=== PATIENT | female | born 2000 | race Caucasian/White ===

== ENCOUNTER 2023-12-24 14:38 | Outpatient (CLI) | payer BC, SELFPAY ==
--- NOTE | ~2023-12-24 | US_ITS ---
US breast RT limited 12/24/2023 15:55 Indication: Follow-up right breast mass Procedure: High-resolution Limited ultrasound of the right breast Comparison: Ultrasound dated 04/30/2023 Findings: At 10:00, 8 cm from the nipple there is an oval slightly lobulated parallel oriented hypoec hoic solid mass without significant posterior features or internal vascularity. This mass measures 3 x 2.9 x 0.7 cm compared with 3.1 x 3 x .8 cm on prior study. No significant change to morphology of t his mass allowing for differences of technique. Impression: 1: Stable benign-appearing right breast mass located at 10:00, 8 cm from the nipple. BI-RADS CATEGORY 3-PROBABLY BENIGN FINDING RECOMMENDATION: 12 month follow-up Limited right breast ultrasound recommended. Reviewed, dictated and finalized at location A. S AND MARKETING MANAGER Impression: 1: Stable benign-appearing right breast mass located at 10:00, 8 cm from the ni pple. BI-RADS CATEGORY 3-PROBABLY BENIGN FINDING RECOMMENDATION: 12 month follow-up Limited right breast ultrasound recommended.
== END 2023-12-24 14:39 | disposition home or self-care (01) ==
PROVIDERS: Visit Provider Obstetrics & Gynecology
DX: N63.11 Unspecified lump in the right breast, upper outer quadrant (principal)
CPT/HCPCS: 76642

== ENCOUNTER 2024-12-24 13:27 | Outpatient (CLI) | payer BC, SELFPAY ==
--- NOTE | ~2024-12-24 | US_ITS ---
US breast RT limited 12/24/2024 13:59 Indication: Follow-up right breast mass Procedure: High-resolution Limited ultrasound of the right breast Comparison: Comparison to multiple prior studies sequentially, with oldest reviewed study dated 04/2023. Findings: There is an oval slightly heterogeneous circumscribed parallel oriented mass of the right b reast at 10:00, 8 cm from the nipple measuring 3 x 2.9 x 0.7 cm. This mass measured 3.1 x 2.9 x 0.8 c m on 04/30/2023. There is minimal internal vascularity. No significant posterior features. Impression: 1: Stable right breast mass located at 10:00, 8 cm from the nipple, likely benign. BI-RADS CATEGORY 3-PROBABLY BENIGN FINDING RECOMMENDATION: 12 month interval follow-up Limited right breast ultrasound recommended. Reviewed, dictated and finalized at location A. NICAL ILLUSTRATOR Impression: 1: Stable right breast mass located at 10:00, 8 cm from the nipple, likely sarah gn. BI-RADS CATEGORY 3-PROBABLY BENIGN FINDING RECOMMENDATION: 12 month interval follow-up Limited right breast ultrasound rec ommended.
--- OUTSIDE RECORDS SUMMARY | 2024-12-24 14:10 | XMS_ITS | Encounter Summary ---
Author Organization [facility] Address [address] [place] [address]. [place], [place] [id number] [place] [address] Care Team Providers Care Melting Furnace Skimmer Name Role Phone Pedro Glass Primary Care Provider [phone] Encounter Details Date Type Department Care Team (Late st Contact Info) Description 12/18/2024 [employer] Group Message Enc [facility] [address] [place] [address] [facility] Order Social History Tobacco Use Types Packs/Day Years Used Date Smoking Tobacco: Never Smokeless Tobacco: Never Comments:non smoker Alcohol Use Standard Drinks/Week Comments Never 0 (1 standard drink = 0.6 oz pur e alcohol) PHQ-2 Answer Date Recorded Patient Health Questionnaire-2 Score 0 12/08/2024 Comments No Sex and Gender Information Value Date Recorded Sex Assigned at Female 12/08/2024 7:51 AM VENDING MACHINE COLLECTOR Legal Sex Female 8:07 PM CDT Gender Identity Not on file Sexual Orientation Not on file documented as of this encounter Plan of Treatment Not on file documented as of this encounter Visit Diagnoses Not on filedocumented in this encounter Additional Health Concerns Infection Onset Date Last Indicated Resolved Time MRSA 12/15/2018 12/15/2018 Assessment Noted Time PHQ-9 Depression Total Score: 6 09/29/20 21 3:14 PM CDT documented as of this encounter Care Teams Melting Furnace Skimmer Relationship Specialty [place] [address] [place] [address] PCP - General Physician [facility] 11/24/24 documented as of this encounter
--- OUTSIDE RECORDS SUMMARY | 2024-12-24 14:10 | XMS_ITS | Clinical Summary ---
Author Organization [facility] Address [address] [place] [address]. [place], [place] [id number] [place] [address] Care Team Providers Care Bus And Trolley Inspecting Dispatcher Name Role Phone Pedro Glass Primary Care Provider [phone] Allergies No known active allergies Medications minocycline (MINOCIN) 50 MG capsule Take 50 mg by mouth 2 (two) times daily. 2 12/08/19 25 Discontinu ed(Therapy completed) Adapalene-Benzo yl Peroxide 0.1-2.5 % Gel APPLY TO THE AFFECTED AREA EVERY DAY DIRECTED 2 12/08/19 25 Discontinu ed(Therapy completed) spironolactone (ALDACTONE) 25 MG tabletIndicatio ns:Cystic acne vulgaris Take 1 tablet (25 mg total) by mouth daily. After one month can increase to 50 mg (2 tablets) daily. 90 tablet 3 12/08/19 25 Discontinu ed(Therapy completed) Active Problems Problem Noted Date Diagnosed Date Migraine with aura and witho ut status migrainosus, not intractable 03/04/2018 Overview (09/29/2021): Migraine headaches (start with right eye temporal blurring followed by bifrontal, pressure/throbbing headaches with nausea associated, moderate intensity and worsened with activity) that have been present for 1/5 yrs and occurring once every month. She does not respond to 400 mg ibuprofen. Her neurological exam is significant for jerky smooth pursuit movements and overshoot/undershoot movements during saccades. Rest of her neurological exam is normal. Clearly she has migraines with aura and her abnormal ocular movements may be precipitating her migraines especially when she is involved in reading a lot Plan- ?? Use naproxen 500 mg prn ?? Will try sumatriptan 50 mg prn for migraines. Can repeat in 1/2 hr if the headache does not resolve. Use at onset of headaches. Use zofran 4 mg prn for nausea associated ?? Discussed lifestyle factors to improve headache control ?? Referred to PT for management of abnormal eye movements ?? No need for imaging ?? No need for migraine prophylaxis Resolved Problems Problem Noted Date Diagnosed Date Resolved Date Closed nondisplaced fracture of head of right radius 10/11/2016 10/05/2021 Encounters Date Type Department Care Team Description 12/18/2024 [employer] Message Enc [facility] Out[facility] Rehab [address] [place] [address] [facility] Provider Physical Therapy Order 12/08/2024 8:00 AM EQUITY MANAGER Office Visit [facility] [place] [address] [place] [address] Pedro Glass PA Follow Up (Transfer care/Last office visit 2022); Hip Pain (Pt c/o right hip pain X 1 month); Leg Pain (Pt c/o upper right leg pain X 2 years off and on) 12/08/2024 Travel from Last 3 Months Immunizations Name Administration Dates Next Due Dtap 01/13/2007, 3,05/11/2002,04/08,03/09/2002 Dtap (Acel-Immune) 01/13/2007, 3,05/11/2002,04/08,03/09/2002 HPV4 (Gardasil) 01/22/2013,09/21/2012,07/22/2012 Hepatitis A (Havrix [address]) 05/23/2017, 006 Hepatitis A Vaccine 05/23/2017,07/18/2006 Hepatitis B 08/11/2002,2001,2001 Hepatitis B Pediatric 08/11/2002,2001,10/25 Hib (Generic) 05/20/2003, 2,03/09/2002,01/09 Hib (PedvaxHIB)3 Dose 05/20/2003, 002,03/09/2002,01/09 IPV/OPV 01/13/2007, 3,03/09/2002,01/09 Influenza (Afluria - Preserv ative Free) 08/25/2024 Influenza (Generic) 08/17/2021 MMR 01/13/2007,11/10/2002 MMR (MMRII) 01/13/2007,11/10/2002 Menactra 06/12/2018 Meningcoccal Group B (Bexser o)(aka Meningitis) 06/12/2018 Meningococcal (Menactra) 06/12/2018,07/24/2013 Meningococcal B 09/04/2018 Pneumococcal (Prevnar 7) 11/10/2002,0701/2002,03/09/2002,01/09 Polio IPV (Ipol) 01/13/2007, 3,03/09/2002,01/09 Tdap (Boostrix) 07/22/2012 Tdap (Generic) 07/22/2012 Varicella (Varivax) 01/13/2007,02/12/2003 Varicella Vaccine 01/13/2007,02/12/2003 Family History Medical History Relation Comments Heart Disease Maternal Grandmother hypothyroidism Mother Relation Status Comments Father Alive Maternal Grandmother Mother Alive Social History Tobacco Use Types Packs/Day Years Used Date Smoking Tobacco: Never Smokeless Tobacco: Never Tobacco Cessation:Counseling Given: No Comments:non smoker Alcohol Use Standard Drinks/Week Comments Never 0 (1 standard drink = 0.6 oz pur e alcohol) PHQ-2 Answer Date Recorded Patient Health Questionnaire-2 Score 0 12/08/2024 Comments No Sex and Gender Information Value Date Recorded Sex Assigned at Female 12/08/2024 7:51 AM EQUITY MANAGER Legal Sex Female 8:07 PM CDT Gender Identity Not on file Sexual Orientation Not on file Last Filed Vital Signs Vital Sign Reading Time Taken Comments Blood Pressure 101/62 12/08/2024 8:08 AM EQUITY MANAGER Pulse 54 12/08/2024 8:08 AM EQUITY MANAGER Temperature 36.8 ??C (98.3 ??F) 12/08/2024 8:08 AM CS T Respiratory Rate 16 12/08/2024 8:08 AM EQUITY MANAGER Oxygen Saturation 98% 12/08/2024 8:08 AM EQUITY MANAGER Inhaled Oxygen Concentration - - Weight 60.3 kg (133 lb) 12/08/2024 8:08 AM EQUITY MANAGER Height 171.5 cm (5' 7.5 ) 12/08/2024 8:08 AM EQUITY MANAGER Body Mass Index 20.52 12/08/2024 8:08 AM EQUITY MANAGER Plan of Treatment Health Maintenance Due Date Last Done Comments Cervical Cancer Screening Pap Smear (Age 21 to 29) Every 3 Years 2001 Meningococcal B Vaccine (2 of 2 - Bexsero SCDM 2-dose series) 12/13/2018 06/12/2018 Hepatitis C 2019 DTaP, Tdap and Td Vaccines (8 - Td or Tdap) 07/22/2022 07/22/2012, 07/22/2012, 01/13/2007, Additional history exists Annual Physical 09/29/2022 09/29/2021 Cervical Cancer Screening 04/26/2025 Po stponed from 2001 (Going to Outside Clinic) COVID-19 Vaccine ( season) 2025 08/02/2021, 07/11/2021 Postponed from 07/26/2024 (Patient Refused) Hepatitis B Vaccines Completed 08/11/2002, 08/11/2002, 2001, Additional history exists Pneumococcal Vaccine: Pediatrics (0 to 5 Years) and At-Risk Patients (6 to 64 Years) Aged Out 11/10/2002, 05/27/2002, 03/09/2002, Additional history exists No longer eligible based on patient's age to complete this topic HPV Vaccines Completed 01/22/2013, 08/26, 07/22/2012 Meningococcal Vaccine Completed 09/04/2018 , 06/12/2018, 06/12/2018, Additional history exists Influenza Adult Completed 08/25/2024, 08/17/2021 PHQ-2 (Physician [place]) Completed 12/08/2024 RSV Immunizations Under 20 Months Aged Out No longer eligible based on patient's age to complete this topic Additional Health Concerns Infection Onset Date Last Indicated MRSA 12/15/2018 12/15/[address] [place] [address] Care Teams Bus And Trolley Inspecting Dispatcher Relationship Specialty [place] [address] [place] [address] PCP - General Physician [facility] 11/24/24
--- OUTSIDE RECORDS SUMMARY | 2024-12-24 14:10 | XMS_ITS | Referral Summary ---
Author Organization [facility] Address [address] [place] [address] Care Team Providers Care Ent Surgeon Name Role Phone Unavailable Primary Care Provider Unavailabl e Source Comments [facility],non-owned Affiliates and Associated Physician Practices is amultiple site organization consisting of ambulatory clinics and hospital sitesin [place], [place], [place] and [place]. This disclosure is being madepursuant to the Care Everywhere program and may not contain all information available regarding this patient. Last updated 18.[facility] Allergies No known active allergies Medications * Be aware that medications may not be up to date on this document. Alwaysverify current medications with the patient. Medication Sig Dispensed Refills Start Date End Date Status fluticasone propionate (FLONASE) 50 MCG/ACT nasal spray U 2 SPRAYS IEN D 5 09/26/2016 Active cetirizine (ZYRTEC) 10 MG tablet TK 1 T PO QD 5 12/20/2017 Active ondansetron, disintegrating, (ZOFRAN ODT) 4 MG tabletIndications:Mikey jocelynn with aura and without status migrainosus, not intractable Take 1 tablet by mouth every 6 hours as needed for Nausea/Vomiting Allow tablet to dissolve on the tongue 15 tablet 06/24/2019 Active SUMAtriptan (IMITREX) 50 MG tabletIndications:Mikey jocelynn with aura and without status migrainosus, not intractable Take 1 tablet by mouth once as needed for Migraine Maximum daily dose: 200mg/24 hours 9 tablet 06/24/2019 Active Active Problems Problem Noted Date Diagnosed Date Migraine with aura and witho ut status migrainosus, not intractable 03/04/2018 Overview (03/04/2018): Migraine headaches (start with right eye temporal [...] imaging ?? No need for migraine prophylaxis Closed nondisplaced fracture of head of right ra dius 10/11/2016 Chronic tonsillitis 01/05/2011 Social History Tobacco Use Types Packs/Day Years Used Date Smoking Tobacco: Never Smokeless Tobacco: Never Sex and Gender Information Value Date Recorded Sex Assigned at Not on file Gender Identity Not on file Sexual Orientation Not on file Last Filed Vital Signs Vital Sign Reading Time Taken Comments Blood Pressure 120/80 03/04/2018 12:26 PM CDT Pulse 76 06/20/2011 3:36 PM CDT Temperature 36.2 ??C (97.1 ??F) 06/20/2011 1 1:35 AM CDT Respiratory Rate 20 06/20/2011 3:36 PM CDT Oxygen Saturation 98% 06/20/2011 11: 10 AM CDT Inhaled Oxygen Concentration - - Weight 55.7 kg (122 lb 12.7 oz) 018 12:26 PM CDT Height 171 cm (5' 7.32 ) 03/04/2018 12: 26 PM CDT Body Mass Index 19.05 03/04/2018 12:26 PM CDT Plan of Treatment Not on file AGGIE STRICKLAND Personal/[place] [address] Danielle Strickland Personal/Family Self [address] [facility] [place] [address]
--- OUTSIDE RECORDS SUMMARY | 2024-12-24 14:10 | XMS_ITS | Patient Health Summary ---
Author Organization [facility] Address [address] [place] [address] Care Team Providers Care Registered Dietitian Name Role Phone Unavailable Primary Care Provider Unavailabl e Note from [facility],non-owned Affiliates and Associated Physician Practices is amultiple site organization consisting of ambulatory clinics and hospital sitesin [place], [place], [place] and [place]. This disclosure is being madepursuant to the Care Everywhere program and may not contain all information available regarding this patient. Last updated 18.[facility] Allergies No known active allergies Medications * Be aware that medications may not be up to date on this document. Alwaysverify current medications with the patient. * fluticasone propionate (FLONASE) 50 MCG/ACT nasal spray(Started 09/26/2016) U 2 SPRAYS IEN D 5 refills left * cetirizine (ZYRTEC) 10 MG tablet(Started 12/20/2017) TK 1 T PO QD 5 refills left * ondansetron, disintegrating, (ZOFRAN ODT) 4 MG tablet(Started 06/24/2019) Take 1 tablet by mouth every 6 hours as needed for Nausea/Vomiting Allow tablet to dissolve on the tongue * SUMAtriptan (IMITREX) 50 MG tablet(Started 06/24/2019) Take 1 tablet by mouth once as needed for Migraine Maximum daily dose: 200mg/24 hours Active Problems Problem Noted Date Diagnosed Date Migraine with aura and witho ut status migrainosus, not intractable 03/04/2018 Closed nondisplaced fracture of head of right [...] Mass Index 19.05 03/04/2018 12:26 PM CDT Procedures * PATHOLOGY/CYTOLOGY REPORT ORDER(Performed 06/21/2011) * GROSS EXAM PATHOLOGY(Performed 06/20/2011) Results * PATHOLOGY/CYTOLOGY REPORT ORDER (06/21/2011 2:10 PM CDT) Narrative Procedure Note Document, Scanned - 06/21/2011 2:10 PM CDT Scanned Document LAB - PATHOLOGY/CYTO LOGY ORDERABLES * GROSS EXAM PATHOLOGY (06/20/2011 10:30 AM CDT) [facility] Clinical History [facility] Comment: The patient is a 10-year-old girl with adenotonsillar hypertrophy and recurrent tonsillitis. ?? Gross Description [facility] Comment: Submitted fresh in one container for gross examination only, labeled with the patient's name, Danielle Strickland, and tonsils are two egg- shaped, pink-whipple palatine tonsils measuring 2 x 1.5 x 1 cm and 2 x 1.8 x 1 cm, weighing approximately 6 grams combined. ??On cut surface the tonsils have a cerebriform, yellow-whipple appearance. ??No sections are taken. ?(CT/nab) Gross Diagnosis [facility] Comment: GROSS DIAGNOSIS: ??PALATINE TONSILS. This case has been personally reviewed and interpreted by the attending (teaching) pathologist. Conveyor Man NIHARIKA RICHARDS, [facility] Pathologist Violetta Abreu M.D. [facility] Electronically Signed By VIOLETTA ABREU [facility] SPECIMEN FROM TONSIL / Unknown 06/20/2011 10:30 AM CDT 06/20/2011 12:16 PM CDT Davis Cifuentes MD LAB - PATHOLOGY/C YTOLOGY ORDERABLES [facility] [address] [place] [address]
--- OUTSIDE RECORDS SUMMARY | 2024-12-24 14:10 | XMS_ITS | Clinical Summary ---
Author Organization [facility] Address [address] [place] [address] Care Team Providers Care Rn Provider Relations Name Role Phone Unavailable Primary Care Provider Unavailabl e Source Comments [facility],non-owned Affiliates and Associated Physician Practices is amultiple site organization consisting of ambulatory clinics and hospital sitesin [place], [place], [place] and [place]. This disclosure is being madepursuant to the Care Everywhere program and may not contain all information available regarding this patient. Last updated 18.[employer] [facility] Allergies No known active allergies Medications * [...] right ra dius 10/11/2016 Chronic tonsillitis 01/05/2011 Family History Medical History Relation Name Comments Anesthesia Reaction Neg Hx Bleeding Disorders Neg Hx Childhood Hearing Disorder Neg Hx Migraine Neg Hx Social History Tobacco Use Types Packs/Day Years [...] 03/04/2018 12:26 PM CDT Plan of Treatment Health Maintenance Due Date Last Done Comments PAP SMEAR 2001 HIV SCREENING 2016 HPV VACCINE (1 - 3-dose series) 2016 CHLAMYDIA/GONORRHEA SCREENING 2017 MENINGOCOCCAL (Group B) VACC INE (1 of 2 - Standard) 2017 HEPATITIS C SCREENING 11/04/2019 DTAP/TDAP/TD VACCINES (1 - Tdap) 2020 HEPATITIS B VACCINE (1 of 3 - 19+ 3-dose series) 2020 COVID-19 VACCINE (1 - 2023-2 5 season) 2024 INFLUENZA VACCINE (#1) 2024 DEPRESSION SCREENING 11/25/2024 ZOSTER VACCINE (1 of 2) 2051 HIB VACCINE Aged Out No longer eligi ble based on patient's age to complete this topic MENINGOCOCCAL VACCINE Aged Out No maya shae eligible based on patient's age to complete this topic PNEUMOCOCCAL VACCINE Aged Out No long er eligible based on patient's age to complete this topic AGGIE LESTER Personal/[place] [address] Danielle Lester Personal/Family Self [address] [facility] [place] [address]
== END 2024-12-24 13:28 | disposition home or self-care (01) ==
PROVIDERS: Visit Provider Obstetrics & Gynecology
DX: N63.11 Unspecified lump in the right breast, upper outer quadrant (principal); R92.8 Other abnormal and inconclusive findings on diagnostic imaging of breast
CPT/HCPCS: 76642